=== PATIENT | male | born 1950 | race Caucasian/White ===

== ENCOUNTER → 2019-12-30 | Outpatient (CLI) | payer OTHER ==
[~2019-12-30] MED LIST: ASPIR LOW81 MG PO; XANAX0.25 MG PO; ZOLOFT50 MG PO
== END | disposition home or self-care (01) ==
LOC: COVID19 10:12
PROVIDERS: ATTEND Family Medicine
DX: Z20.828 Contact with and (suspected) exposure to other viral communicable diseases (principal)